=== PATIENT | male | born 1975 | race Caucasian/White ===

== ENCOUNTER 2019-04-04 13:46 | Emergency (ER) | payer OTHER ==
[~2019-04-04] VITALS: Ht 180.3 cm; Wt 83.6 kg
[2019-04-04 13:51] VITALS: BP 113/74
== END 2019-04-04 15:06 | disposition home or self-care (01) ==
LOC: ED 15:00
DX: J32.0 Chronic maxillary sinusitis (principal); F17.200 Nicotine dependence, unspecified, uncomplicated
CPT/HCPCS: 71046; 93005; 99283

== ENCOUNTER 2021-08-20 00:16 | Emergency (ER) | payer MEDICAID ==
[~2021-08-20] VITALS: Ht 180.3 cm; Wt 77.7 kg
[2021-08-20 03:41] VITALS: BP 157/98
== END 2021-08-20 05:01 | disposition home or self-care (01) ==
LOC: ED 00:21
DX: K02.9 Dental caries, unspecified (principal); K08.89 Other specified disorders of teeth and supporting structures; K04.7 Periapical abscess without sinus; R22.0 Localized swelling, mass and lump, head; F17.200 Nicotine dependence, unspecified, uncomplicated
CPT/HCPCS: 36415; 70487; 80048; 82040; 85025; 87040; 96365; 99285; J0295; Q9967

== ENCOUNTER 2021-08-20 16:02 | Day surgery (SDC) | payer MEDICAID ==
[~2021-08-20] VITALS: Ht 180.3 cm; Wt 77.2 kg
--- NOTE | 2021-08-20 17:59 | NUR ---
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
--- NOTE | 2021-08-20 18:18 | NUR ---
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
[2021-08-20] MEDS ORDERED: CEFAZOLIN PMX 1GM/50ML 50 ML IV ONE (18:32)
--- NOTE | 2021-08-20 18:39 | NUR ---
Here for dental surgery. Lt facial swelling x 2 days. Picked up antibiotic prescription today, but hasn't started it. Did have Amoxicillin at dentist office today. Took Aleve today - last dose about 0630 today. Was in this ED yesterday. Resp even & unlabored, speech clear.
--- NOTE | 2021-08-20 18:45 | NUR ---
Last oral intake: a cookie about 1630, Pepsi this morning.
[2021-08-20] MEDS ORDERED: AMOX1TAB12 PO (18:46)
[2021-08-20 18:53] LABS: BASOPHILS % (AUTO) 1 % (0-1); EOSINOPHILS % (AUTO) 0 % (1-7); LYMPHOCYTES % (AUTO) 23 % (22-44); MEAN CORPUSCULAR HEMOGLOBIN 28.3 pg (27.5-34.5); MEAN CORPUSCULAR HGB CONC 34.5 g/dL (33.2-36.2); MEAN PLATELET VOLUME 7.3 fL (7.4-10.4); MONOCYTES % (AUTO) 12 % (2-9); NEUTROPHILS % (AUTO) 65 % (42-75); PLATELET COUNT 202 x10^3/uL (130-400); RED BLOOD COUNT 4.45 x10^6/uL (4.38-5.82); RED CELL DISTRIBUTION WIDTH 13.7 % (9.4-14.8)
[2021-08-20 18:57] LABS: INTERNATIONAL NORMALIZED RATIO 1.04 (0.93-1.1); PROTHROMBIN TIME 11.1 Seconds (9.6-11.5)
--- NOTE | 2021-08-20 18:57 | NUR ---
PT REPORT TO CARLOS GONZALEZ. PT CARE TRANSFERRED.
[2021-08-20 18:59] LABS: ANION GAP 7 mmol/L (5-15); CALCIUM 8.1 mg/dL (8.5-10.1); CHLORIDE 101 mmol/L (98-107)
[2021-08-20] MEDS ORDERED: SODIUM CHLORIDE 0.9% 1,000ML IVBOLUS ONE (19:00)
[2021-08-20] MEDS ORDERED: SODIUM CHLORIDE FLUSH 10ML SYR IVF ONE (19:00)
[2021-08-20] MEDS ORDERED: MORPHINE SULFATE 4 MG/ML, 1ML IVPush PRN (19:00)
[2021-08-20] MEDS ORDERED: ONDANSETRON 2MG/ML, 2ML IVPush ONE (19:00)
[2021-08-20] MEDS ORDERED: MORPHINE SULFATE 4 MG/ML, 1ML ONE (19:23)
[2021-08-20] MEDS ORDERED: CEFAZOLIN PMX 1GM/50ML 50 ML ONE (19:23)
[2021-08-20] MEDS ORDERED: ONDANSETRON 2MG/ML, 2ML ONE ×2 (19:23→20:43)
[2021-08-20] MEDS ORDERED: EPINEPHRINE 1 MG/ML, 1ML ONE (19:39)
[2021-08-20] MEDS ORDERED: LIDOCAINE/PF 1%, 30ML ONE (19:39)
--- NOTE | 2021-08-20 20:11 | NUR ---
Patient is resting comfortably in bed. Bed in lowest, rails engaged, call light on lap. Vital Signs within normal limits. medicated per mar, nad, denies additional questions or needs at this time, WCTM.
[2021-08-20] MEDS ORDERED: MIDAZOLAM 1 MG/ML, 2ML ONE (20:17)
[2021-08-20] MEDS ORDERED: FENTANYL PF 100 MCG/2ML ONE (20:17)
[2021-08-20] MEDS ORDERED: OXYcodone 5 MG/5 ML ORAL.SOL UDC PO PRN (20:30)
[2021-08-20] MEDS ORDERED: MIDAZOLAM 1 MG/ML, 2ML IV PRN (20:30)
[2021-08-20] MEDS ORDERED: MEPERIDINE/PF 25MG/0.5ML IVPush PRN (20:30)
[2021-08-20] MEDS ORDERED: HYDROmorphone 1 MG/ML, 1ML INJ IVPush PRN (20:30)
[2021-08-20] MEDS ORDERED: ACETAMINOPHEN 325 MG TABLET PO PRN (20:30)
[2021-08-20] MEDS ORDERED: FENTANYL PF 100 MCG/2ML IV PRN (20:30)
[2021-08-20] MEDS ORDERED: PROMETHAZINE 25 MG/ML, 1ML IVPush PRN (20:30)
[2021-08-20] MEDS ORDERED: PROPOFOL 10 MG/ML, 20ML ONE (20:43)
[2021-08-20] MEDS ORDERED: DEXAMETHASONE 4 MG/ML, 1ML ONE (20:43)
[2021-08-20] MEDS ORDERED: LIDOCAINE-MPF 2% ,5ML ONE (20:43)
[2021-08-20 22:10] VITALS: BP 130/86
[2021-08-20] MEDS ORDERED: IBUP-1223 PO (22:12)
[2021-08-20] MEDS ORDERED: HYDR-3248 PO (22:13)
== END 2021-08-20 22:30 | disposition home or self-care (01) ==
LOC: SDC 16:03 → OR 19:57 → EDSTATUS 20:45 → 4NE 21:50 → OR 21:50 → SDC 22:30 → OR 22:30 → 4NE 22:30
PROVIDERS: ATTEND Emergency Medicine
DX: K12.2 Cellulitis and abscess of mouth (principal); F17.210 Nicotine dependence, cigarettes, uncomplicated; Z20.822 Contact with and (suspected) exposure to COVID-19; Z79.01 Long term (current) use of anticoagulants; Z79.899 Other long term (current) drug therapy
CPT/HCPCS: 36415; 41008; 41899; 70100; 80048; 82040; 85025; 85610; 87635; 96365; 96366; 96375; 99284; J0171; J0690; J1100; J2250; J2270; J2405; J2704; J3010; J7030; G0378